=== PATIENT | male | born 1935 | race Caucasian/White ===

== ENCOUNTER 2017-01-20 08:25 | Outpatient (CLI) | payer MEDICARE, OTHER ==
[2017-01-20 08:51] LABS: BASOPHILS # (AUTO) 0.1 10^3/uL (0.0-0.1); BASOPHILS % (AUTO) 0.8 %; EOSINOPHILS # (AUTO) 0.6 10^3/uL (0.0-0.7); EOSINOPHILS % (AUTO) 6.3 %; HCT - HEMATOCRIT 42.2 % (42.0-52.0); HGB - HEMOGLOBIN 14.2 g/dL (14.0-18.0); LYMPHOCYTES # (AUTO) 2.7 10^3/uL (1.5-3.5); LYMPHOCYTES % (AUTO) 27.2 %; MEAN CORPUSCULAR HEMOGLOBIN 30.8 pg (27.0-31.0); MEAN CORPUSCULAR HGB CONC 33.6 g/dL (32.0-36.0); MEAN CORPUSCULAR VOLUME 91.9 fL (80.0-94.0); MONOCYTES # (AUTO) 0.9 10^3/uL (0.0-1.0); MONOCYTES % (AUTO) 9.4 %; NEUTROPHILS # (AUTO) 5.5 10^3/uL (1.5-6.6); NEUTROPHILS % (AUTO) 56.3 %; RED BLOOD COUNT 4.59 10^6/uL (4.70-6.10); RED CELL DISTRIBUTION WIDTH 13.1 % (12.0-15.0); UNCORRECTED WHITE BLOOD COUNT 9.8 x10^3/uL; WHITE BLOOD COUNT 9.8 x10^3/uL (4.8-10.8)
[2017-01-20 09:04] LABS: ALBUMIN/GLOBULIN RATIO 1.6 (1.0-2.2); BILIRUBIN,TOTAL 0.4 mg/dL (0.2-1.0); BUN - BLOOD UREA NITROGEN 21 mg/dL (6-20); CALCIUM 9.3 mg/dL (8.5-10.3); CARBON DIOXIDE - CO2 27 mmol/L (21-32); CHLORIDE 105 mmol/L (101-111); CHOL/HDL RATIO 5.4 (<5.0); CHOLESTEROL 193 mg/dL; GFR - MDRD 72 (>89); GLUCOSE 111 mg/dL (70-100); HDL CHOLESTEROL 36 mg/dL; LDL/HDL RATIO 3.1 (<3.6); POTASSIUM 4.2 mmol/L (3.5-5.0); SODIUM 139 mmol/L (135-145); TOTAL PROTEIN 7.1 g/dL (6.7-8.2); TRIGLYCERIDES 223 mg/dL; VLDL CHOLESTEROL 45 mg/dL
== END 2017-01-20 08:26 | disposition home or self-care (01) ==
LOC: LAB 08:25
PROVIDERS: ATTEND Internal Medicine
DX: I25.10 Atherosclerotic heart disease of native coronary artery without angina pectoris (principal)
CPT/HCPCS: 36415; 80053; 80061; 84443; 85025

== ENCOUNTER 2017-05-15 07:45 | Outpatient (CLI) | payer MEDICARE, OTHER ==
[2017-05-15 12:34] LABS: LDL CHOLESTEROL,DIRECT 88 mg/dL
== END 2017-05-15 07:46 | disposition home or self-care (01) ==
LOC: LAB.F 07:45
PROVIDERS: ATTEND Internal Medicine
DX: E78.2 Mixed hyperlipidemia (principal); Z79.899 Other long term (current) drug therapy
CPT/HCPCS: 36415; 84450; 84460

== ENCOUNTER 2018-03-19 07:31 | Outpatient (CLI) | payer MEDICARE, OTHER ==
[2018-03-19 10:07] LABS: BASOPHILS % (AUTO) 0.3 %; EOSINOPHILS # (AUTO) 0.4 10^3/uL (0.0-0.7); EOSINOPHILS % (AUTO) 5.8 %; HGB - HEMOGLOBIN 14.3 g/dL (14.0-18.0); LYMPHOCYTES # (AUTO) 2.2 10^3/uL (1.5-3.5); LYMPHOCYTES % (AUTO) 29.7 %; MEAN CORPUSCULAR HGB CONC 33.6 g/dL (32.0-36.0); MEAN CORPUSCULAR VOLUME 92.4 fL (80.0-94.0); MEAN PLATELET VOLUME 10.9 fL (7.4-11.4); MONOCYTES # (AUTO) 0.8 10^3/uL (0.0-1.0); MONOCYTES % (AUTO) 10.5 %; NEUTROPHILS % (AUTO) 53.7 %; PLT - PLATELET COUNT 179 10^3/uL (130-450); RED BLOOD COUNT 4.62 10^6/uL (4.70-6.10); RED CELL DISTRIBUTION WIDTH 13.5 % (12.0-15.0); WHITE BLOOD COUNT 7.4 x10^3/uL (4.8-10.8)
[2018-03-19 10:23] LABS: ALBUMIN 4.2 g/dL (3.2-5.5); ALBUMIN/GLOBULIN RATIO 1.6 (1.0-2.2); ALKALINE PHOSPHATASE 48 IU/L (42-121); ALT ALANINE AMINOTRANSFERASE 25 IU/L (10-60); AST ASPARTATE AMINOTRANSFERASE 25 IU/L (10-42); BILIRUBIN,TOTAL 1.1 mg/dL (0.2-1.0); BUN - BLOOD UREA NITROGEN 19 mg/dL (6-20); CALCIUM 8.7 mg/dL (8.5-10.3); CARBON DIOXIDE - CO2 25 mmol/L (21-32); CHLORIDE 104 mmol/L (101-111); CHOL/HDL RATIO 3.7 (<5.0); CHOLESTEROL 161 mg/dL; CREATININE 0.9 mg/dL (0.6-1.2); GFR - MDRD 81 (>89); GLUCOSE 105 mg/dL (70-100); HDL CHOLESTEROL 44 mg/dL; LDL CHOLESTEROL,CALCULATED 87 mg/dL; SODIUM 137 mmol/L (135-145); TOTAL PROTEIN 6.8 g/dL (6.7-8.2); VLDL CHOLESTEROL 30 mg/dL
== END 2018-03-19 07:32 | disposition home or self-care (01) ==
LOC: LAB.F 07:31
PROVIDERS: ATTEND Internal Medicine
DX: I25.10 Atherosclerotic heart disease of native coronary artery without angina pectoris (principal); E78.5 Hyperlipidemia, unspecified; Z79.899 Other long term (current) drug therapy
CPT/HCPCS: 36415; 80053; 80061; 83721; 85025

== ENCOUNTER 2018-03-29 09:23 | Outpatient (CLI) | payer MEDICARE, OTHER ==
--- NOTE | 2018-03-29 10:39 | XRAY Report ---
Reason: COUGH Procedure Date: 03/29/2018 Accession Number: [id number] / [id number] Procedure: XR - Chest 2 View X-Ray CPT Code: 29375 FULL RESULT: EXAM: CHEST RADIOGRAPHY 2 VIEWS EXAM DATE: 03/29/2018. CLINICAL HISTORY: Cough. COMPARISON: 01/26/2015. TECHNIQUE: PA and lateral views. FINDINGS: Lungs/Pleura: Normal vasculature. Mild hyperinflation is unchanged. No acute pulmonary abnormality. Update goal pleural calcifications are unchanged. No pleural fluid or pneumothorax. Mediastinum: Heart size is normal. Mild aortic tortuosity is unchanged, allowing for slight positional differences. Bones: Degenerative changes of the spine. Other: In electronic device on or in the anterior left chest wall on the prior examination is no longer present. IMPRESSION: Mild hyperinflation consistent with chronic obstructive pulmonary disease. No acute abnormality or significant change from 01/26/2015. [facility]
== END 2018-03-29 09:24 | disposition home or self-care (01) ==
LOC: DI 09:23
PROVIDERS: ATTEND Internal Medicine
DX: R05 Cough (principal)
CPT/HCPCS: 71046

== ENCOUNTER 2018-11-11 11:41 | Outpatient (CLI) | payer MEDICARE, OTHER ==
--- NOTE | 2018-11-11 12:17 | XRAY Report ---
Reason: NIGHT SWEATS Procedure Date: 11/11/2018 Accession Number: [id number] / [id number] Procedure: XR - Chest 2 View X-Ray CPT Code: 00056 FULL RESULT: EXAM: CHEST RADIOGRAPHY EXAM DATE: 11/11/2018 11:56 AM. CLINICAL HISTORY: NIGHT SWEATS. COMPARISON: CHEST 2 VIEW 03/29/2018 9:53 AM. TECHNIQUE: 2 views. FINDINGS: Lungs/Pleura: No focal opacities evident. No pleural effusion. No pneumothorax. Increased lung volumes and flattening of diaphragms, often seen with obstructive lung disease. Mediastinum: Heart and mediastinal contours are stable including subtle calcifications of the aortic arch. A coronary stent is noted. Other: None. IMPRESSION: No acute airspace disease is identified. Suspect obstructive lung disease. [facility]
== END 2018-11-11 11:42 | disposition home or self-care (01) ==
LOC: DI 11:41
PROVIDERS: ATTEND Nurse Practitioner Family
DX: R61 Generalized hyperhidrosis (principal)
CPT/HCPCS: 71046

== ENCOUNTER 2018-11-19 09:33 | Outpatient (CLI) | payer MEDICARE, OTHER ==
[2018-11-19] MEDS ORDERED: ALBUTEROL NEB 2.5 MG/3 ML INH ONE (10:00)
== END 2018-11-19 09:34 | disposition home or self-care (01) ==
LOC: RT 09:33
PROVIDERS: ATTEND Nurse Practitioner Family
DX: R06.2 Wheezing (principal)
CPT/HCPCS: 94010

== ENCOUNTER 2019-02-01 11:19 | Outpatient (CLI) | payer MEDICARE, OTHER ==
[2019-02-01] MEDS ORDERED: IOVERSOL 320 100 ML VIAL IVP ONE ×2 (11:33→12:54)
[2019-02-01] MEDS ORDERED: IOVERSOL 320 50 ML VIAL ONE (11:33)
[2019-02-01 11:45] LABS: CREATININE 0.9 mg/dL (0.6-1.2)
[2019-02-01] MEDS ORDERED: IOVERSOL 320 50 ML VIAL PO ONE (12:54)
--- NOTE | 2019-02-01 15:10 | CT Report ---
Reason: NIGHT SWEATS Procedure Date: 02/01/2019 Accession Number: [id number] / [id number] Procedure: CT - Abdomen/Pelvis W CPT Code: FULL RESULT: EXAM: CT CHEST, ABDOMEN AND PELVIS WITH CONTRAST. EXAM DATE: 02/01/2019 12:37 PM. CLINICAL HISTORY: Night sweats. COMPARISONS: None. TECHNIQUE: Routine helical CT imaging was performed through the chest, abdomen, and pelvis. IV contrast: OPTI-320 100 mL. Enteric contrast: Yes. Reconstructions: Coronal and sagittal. In accordance with CT protocol optimization, one or more of the following dose reduction techniques were utilized for this exam: automated exposure control, adjustment of mA and/or KV based on patient size, or use of iterative reconstructive technique. FINDINGS: Lungs/Pleura: A 0.9 cm left upper lung perifissural groundglass nodule is seen on image 38 series 3. A 2 mm left upper lobe nodule is seen on image 23 series 3. Pulmonary background is mildly emphysematous. There is minimal dependent atelectasis bilaterally. Pleural spaces are clear. Mediastinum: Lymph node in the right hilum measures up to 1.2 cm in short axis, see image 32 series 2. There is no mediastinal lymphadenopathy and no left hilar lymphadenopathy by size criteria. A few prominent mediastinal nodes are noted, for example AP window node on image 28 series 2, up to 0.6 cm in short axis. Liver: Normal. Gallbladder/Bile Ducts: Unremarkable. Spleen: Normal. Pancreas: Normal. Adrenal Glands: Normal. Kidneys: A 1.9 x 1.8 cm partially exophytic hypoenhancing mass in the left kidney is not characterized as a cyst. Right kidney is unremarkable. Peritoneal Cavity/Bowel: There are prominent subcentimeter mesenteric lymph nodes. By size criteria there is no intraperitoneal or retroperitoneal lymphadenopathy. There is no bowel obstruction. There is no free air or free fluid. Pelvic Organs: Normal. The bladder and visualized pelvic organs are within normal limits. Vasculature: Atherosclerotic disease without abdominal aortic aneurysm. Bones: No aggressive osseous lesion is detected. Other: None. IMPRESSION: Hypoenhancing 1.9 cm left renal mass, not characterized as a cyst. RECOMMENDATION: Multiphase CT or MRI renal mass protocol. [facility]
== END 2019-02-01 11:20 | disposition home or self-care (01) ==
LOC: DI 11:19
PROVIDERS: ATTEND Internal Medicine
DX: R61 Generalized hyperhidrosis (principal); N28.89 Other specified disorders of kidney and ureter
CPT/HCPCS: 36415; 71260; 74177; 82565; Q9967

== ENCOUNTER 2019-02-24 08:18 | Outpatient (CLI) | payer MEDICARE, OTHER ==
[2019-02-24] MEDS ORDERED: IOVERSOL 320 100 ML VIAL IVP ONE ×2 (08:57→15:17)
--- NOTE | 2019-02-25 08:59 | CT Report ---
Reason: RENAL MASS Procedure Date: 02/24/2019 Accession Number: [id number] / [id number] Procedure: CT - ABDOMEN W/WO CPT Code: FULL RESULT: EXAM: CT ABDOMEN WITHOUT AND WITH CONTRAST EXAM DATE: 02/24/2019 09:11 AM. HISTORY: RENAL MASS. COMPARISON: ABDOMEN/PELVIS W/ 02/01/2019 12:28 PM. TECHNIQUE: Routine helical CT imaging was performed through the abdomen before and after administration of IV contrast: 100 cc Optiray 320. Enteric contrast: No. Reconstruction: Coronal and sagittal. In accordance with CT protocol optimization, one or more of the following dose reduction techniques were utilized for this exam: automated exposure control, adjustment of mA and/or KV based on patient size, or use of iterative reconstructive technique. FINDINGS: Lung Bases: Unremarkable. Liver: Normal. No masses. Gallbladder/Bile Ducts: Unremarkable. Spleen: Normal. Pancreas: Normal. No masses or ductal obstruction. Adrenal Glands: Normal. Kidneys: Within the left kidney, there is a 1.6 x 1.8 cm hypodensity. Attenuation characteristics are slightly higher than that expected of a simple cyst. The hypodensity demonstrates no appreciable enhancement over arterial and delayed phase imaging. This likely represents a complex cyst. No other focal renal abnormalities are seen. Peritoneal Cavity/Bowel: Normal. No free fluid, free air or adenopathy. No masses or acute inflammatory process. The appendix is well visualized and normal. Vasculature: There are scattered atheromatous calcifications of the aorta. No acute vascular abnormalities are seen. Bones: No significant abnormality. Other: None. IMPRESSION: 1. There is a 1.6 x 1.8 cm hypodensity within the lateral cortex of the left kidney. Attenuation characteristics on noncontrast imaging are slightly higher than that expected of a simple cyst. It demonstrates no appreciable contrast-enhancement. The hypodensity likely represents a cyst. 2. No other focal renal findings. 3. Remaining solid abdominal organs demonstrate no acute abnormalities. 4. No acute gastrointestinal tract findings. [facility]
== END 2019-02-24 08:19 | disposition home or self-care (01) ==
LOC: DI 08:18
PROVIDERS: ATTEND Internal Medicine
DX: N28.89 Other specified disorders of kidney and ureter (principal)
CPT/HCPCS: 74170; Q9967